=== PATIENT | female | born 1975 | race Caucasian/White ===

== ENCOUNTER 2018-02-19 06:00 | Emergency (ER) | payer OTHER ==
[~2018-02-19] VITALS: Ht 167.6 cm; Wt 89.1 kg
[2018-02-19 06:05] VITALS: Ht 167.6 cm; Wt 89.1 kg
[2018-02-19] MEDS ORDERED: TOPAMAX100 MG PO (06:07)
[2018-02-19] MEDS ORDERED: AMITRIPTYLINE H50 MG PO (06:08)
[2018-02-19] MEDS ORDERED: SUMATRIPTAN SUC25 MG PO (06:08)
[2018-02-19] MEDS ORDERED: ULTRAM50 MG PO (06:08)
[2018-02-19] MEDS ORDERED: NORCO 7.5/325 T1 TA1 PO (09:04)
[2018-02-19 09:30] VITALS: BP 121/72
== END 2018-02-19 09:28 | disposition home or self-care (01) ==
LOC: D.ER 06:00
DX: S86.911A Strain of unspecified muscle(s) and tendon(s) at lower leg level, right leg, initial encounter (principal); X50.1XXA Overexertion from prolonged static or awkward postures, initial encounter; Y93.K1 Activity, walking an animal; Y92.019 Unspecified place in single-family (private) house as the place of occurrence of the external cause